=== PATIENT | female | born 1945 | race Caucasian/White ===

== ENCOUNTER → 2021-04-29 | Outpatient (CLI) | payer OTHER ==
--- NOTE | 2021-04-29 11:25 | Diagnostic Imaging Report ---
INDICATION: Pain, injury. COMPARISON: None available. TECHNIQUE: Three radiographs of the left elbow dated 04/29/2021. FINDINGS: Vascular stent graft is identified medial to the distal humerus. Recent fracturing of the radial neck is identified extending transversely through the radial neck. There appears to be probable intra-articular extension through the radial head to the radiocarpal joint. No additional fracture or dislocation. Elbow joint effusion is present. No suspicious radiopaque foreign body. IMPRESSION: Recent nondisplaced fracturing of the radial neck with possible intra-articular extension to the radiocapitellar joint. Elbow joint effusion. Dictated by: Dictated on workstation # [id number]
== END ==
LOC: ORTHO 09:42
PROVIDERS: ATTEND Orthopaedic Surgery
DX: S12.8XXA Fracture of other parts of neck, initial encounter (principal); X58.XXXA Exposure to other specified factors, initial encounter
CPT/HCPCS: 73080; 99202